=== PATIENT | female | born 1980 | race Caucasian/White ===

== ENCOUNTER 2021-12-18 20:55 | Emergency (ER) | payer MEDICAID ==
[~2021-12-18] VITALS: Ht 177.8 cm; Wt 74.8 kg
[2021-12-18 23:35] LABS: CHLORIDE 101 mEq/L (98-107)
[2021-12-18 23:42] LABS: BASOPHILS % 0.5 % (0.0-2.0); EOSINOPHILS % 1.8 % (0.0-5.0); HEMATOCRIT. 37.2 % (36.0-48.0); HEMOGLOBIN. 12.9 g/dL (12.0-16.0); LYMPHOCYTES % 40.1 % (20.0-50.0); MEAN CORPUSCULAR HEMOGLOBIN 32.2 pg (28.0-32.0); MEAN CORPUSCULAR VOLUME 93.1 fL (81.0-99.0); MEAN PLATELET VOLUME 7.6 fl (7.4-10.4); MONOCYTES % 8.1 % (2.0-8.0); NEUTROPHILS % 49.5 % (40.0-76.0); PLATELET 270 x1000/uL (130-400); RED CELL DISTRIBUTION WIDTH 12.7 % (11.6-14.6)
[2021-12-19] MEDS ORDERED: MECL-159 MT (01:37)
[2021-12-19] MEDS ORDERED: MECLIZINE 25MG TABLET PO ONE (01:45)
[2021-12-19 01:47] VITALS: BP 108/68
== END 2021-12-19 01:50 | disposition home or self-care (01) ==
LOC: ER 21:28
DX: H81.399 Other peripheral vertigo, unspecified ear (principal); Z98.890 Other specified postprocedural states
CPT/HCPCS: 36415; 71045; 80053; 81025; 83880; 84484; 85025; 93005; 99285; J8597